=== PATIENT | male | born 1960 | race Hispanic/Latino ===

== ENCOUNTER → 2022-03-24 | Day surgery (SDC) | payer OTHER ==
[2022-03-18 10:12] LABS: BASOPHILS # (AUTO) 0.1 (0.0-0.1); EOSINOPHILS # (AUTO) 0.3 (0.0-0.4); EOSINOPHILS % 4.9 % (0.0-6.0); HEMATOCRIT 43.9 % (38.2-49.6); HEMOGLOBIN 14.3 g/dL (14.0-18.0); LYMPHOCYTES # (AUTO) 2.1 (1.0-3.2); LYMPHOCYTES % 42.2 % (18.0-39.1); MEAN CORPUSCULAR HEMOGLOBIN 29.2 pg (28-32); MEAN CORPUSCULAR HGB CONC 32.6 g/dL (31-35); MEAN CORPUSCULAR VOLUME 89.8 fL (81-99); MONOCYTES # (AUTO) 0.5 (0.2-0.8); MONOCYTES % 10.5 % (4.4-11.3); NEUTROPHILS # (AUTO) 2.1 (2.1-6.9); NEUTROPHILS % 41.2 % (38.7-80.0); PLATELET COUNT 113 x10e3/uL (140-360); RED BLOOD COUNT 4.89 x10e6/uL (4.3-5.7); RED CELL DISTRIBUTION WIDTH 14.1 % (11.7-14.4)
[2022-03-18 10:26] LABS: INR 1.18
[2022-03-18 10:27] LABS: PARTIAL THROMBOPLASTIN TIME 32.1 seconds (23.8-35.5)
[2022-03-18 10:31] LABS: ALBUMIN 3.5 g/dL (3.5-5.0); ANION GAP 10.6 mmol/L (8-16); CALCIUM 8.9 mg/dL (8.4-10.2); CREATININE, SERUM 0.77 mg/dL (0.72-1.25); POTASSIUM 3.6 mmol/L (3.5-5.1)
[~2022-03-24] MED LIST: GLIMEPIRIDE2 MG PO; METFORMIN HCL850 MG PO; PROPOFOL IV EMULSION 10 MG/ML 20 ML VIAL ONE; VASOTEC5 MG PO
[2022-03-24 09:00] VITALS: BP 134/87
== END | disposition home or self-care (01) ==
LOC: OR 05:52
PROVIDERS: ATTEND Internal Medicine Gastroenterology
DX: K74.69 Other cirrhosis of liver (principal); I85.10 Secondary esophageal varices without bleeding; K29.50 Unspecified chronic gastritis without bleeding; K44.9 Diaphragmatic hernia without obstruction or gangrene; K76.6 Portal hypertension; I10 Essential (primary) hypertension; E11.9 Type 2 diabetes mellitus without complications; Z91.012 Allergy to eggs; Z01.810 Encounter for preprocedural cardiovascular examination; Z01.812 Encounter for preprocedural laboratory examination; Z79.84 Long term (current) use of oral hypoglycemic drugs; Z79.899 Other long term (current) drug therapy; Z86.2 Personal history of diseases of the blood and blood-forming organs and certain disorders involving the immune mechanism
CPT/HCPCS: 36415 ×2; 43244; 80053; 82948; 85025; 85610; 85730; 93005; J2704; 43239; 43255